=== PATIENT | male | born 1995 | race Caucasian/White ===

== ENCOUNTER 2020-11-15 05:43 | Day surgery (SDC) | payer BC ==
[~2020-11-15] VITALS: Ht 177.8 cm; Wt 79.5 kg
[2020-11-15 06:45] VITALS: BP 115/73
[2020-11-15] MEDS ORDERED: SODIUM CHLORIDE 0.9% 1,000 ML IV SCH (07:00)
[2020-11-15] MEDS ORDERED: LIDOCAINE 1%, 20ML ONE (07:31)
[2020-11-15] MEDS ORDERED: LIDOCAINE 2%, 20ML ONE (07:32)
[2020-11-15] MEDS ORDERED: ISOPROTERENOL 0.2MG/ML, 5ML ONE ×2 (07:32→07:42)
[2020-11-15] MEDS ORDERED: FENTANYL PF 100 MCG/2ML ONE ×2 (07:32→11:01)
[2020-11-15] MEDS ORDERED: MIDAZOLAM 1 MG/ML, 5ML ONE (07:32)
[2020-11-15] MEDS ORDERED: ADENOSINE 6 MG/2 ML ONE ×2 (07:32→11:47)
[2020-11-15 07:42] LABS: ANION GAP 4 mmol/L (5-15); CHLORIDE 108 mmol/L (98-107); CREATININE 0.94 mg/dL (0.7-1.3)
[2020-11-15 07:44] LABS: BASOPHILS % (AUTO) 1 % (0-1); EOSINOPHILS % (AUTO) 2 % (1-7); LYMPHOCYTES % (AUTO) 21 % (22-44); MEAN CORPUSCULAR HEMOGLOBIN 28.7 pg (27.5-34.5); MEAN CORPUSCULAR HGB CONC 33.7 g/dL (33.2-36.2); MONOCYTES % (AUTO) 7 % (2-9); NEUTROPHILS % (AUTO) 69 % (42-75); PLATELET COUNT 280 x10^3/uL (130-400); RED CELL DISTRIBUTION WIDTH 13.3 % (9.4-14.8)
[2020-11-15 07:50] LABS: MD NO
[2020-11-15 08:24] LABS: INTERNATIONAL NORMALIZED RATIO 0.96 (0.93-1.1); PROTHROMBIN TIME 10.2 Seconds (9.6-11.5)
[2020-11-15] MEDS ORDERED: METOPROLOL 1 MG/ML, 5ML ONE ×2 (11:01→11:06)
[2020-11-15] MEDS ORDERED: MIDAZOLAM 1 MG/ML, 2ML ONE (11:38)
[2020-11-15] MEDS ORDERED: ACETAMINOPHEN 325 MG TABLET PO PRN (12:30)
== END 2020-11-15 17:44 | disposition home or self-care (01) ==
LOC: CACL 05:43
PROVIDERS: ATTEND Internal Medicine Clinical Cardiac Electrophysiology
DX: I47.1 Supraventricular tachycardia (principal); Z72.89 Other problems related to lifestyle
CPT/HCPCS: 36415; 71046; 80048; 85025; 85610; 85730; 93005; 93613; 93623; 93653; 99156; 99157; C1730; C1732; C1766; C1894; C2630; J0153; J2250; J3010